=== PATIENT | female | born 1985 | race Caucasian/White ===

== ENCOUNTER 2018-03-02 12:14 | Outpatient (CLI) | payer MEDICAID ==
[~2018-03-02] VITALS: Ht 154.9 cm; Wt 62.7 kg
[~2018-03-02 12:14] MED LIST: BACL20TA PO; TRAM50TA2 PO
[2018-03-02 12:59] VITALS: BP 115/77
[2018-03-02 13:19] LABS: AMPHETAMINE SCREEN, URINE Negative (Negative); BARBITURATE SCREEN, URINE Negative (Negative); BENZODIAZEPINE SCREEN, URINE Negative (Negative); CANNABINOID SCREEN, URINE Negative (Negative); COCAINE SCREEN, URINE Negative (Negative); METHADONE SCREEN, URINE Negative (Negative); OPIATE SCREEN, URINE Negative (Negative)
[2018-03-02] MEDS ORDERED: PREN-3 PO (13:29)
[2018-03-02] MEDS ORDERED: HALO5TAB5 PO (13:31)
[2018-03-02] MEDS ORDERED: DIPH25CA61 PO (13:32)
== END 2018-03-02 13:45 | disposition home or self-care (01) ==
LOC: LDOP 12:14
PROVIDERS: ATTEND Student in an Organized Health Care Education/Training Program
DX: O42.913 Preterm premature rupture of membranes, unspecified as to length of time between rupture and onset of labor, third trimester (principal); Z3A.35 35 weeks gestation of pregnancy
CPT/HCPCS: 59025; 80307; 84112; 99201; G0463

== ENCOUNTER 2019-02-18 20:35 | Emergency (ER) | payer MEDICAID ==
[~2019-02-18] VITALS: Ht 154.9 cm; Wt 58.2 kg
[~2019-02-18 20:35] MED LIST changes: +ACET325T14 PO; +DIPH25CA61 PO; +DOCU-131 PO; +HALO5TAB5 PO; +IBUP-1222 PO; +OLAN5TAB9 PO; +PREN-3 PO; +adderall; +tramadol
[2019-02-18 20:42] VITALS: BP 117/80
[2019-02-18 21:33] LABS: BASOPHILS # (AUTO) 0.08 x10^3/uL (0-0.1); BASOPHILS % (AUTO) 1 % (0-1); EOSINOPHILS # (AUTO) 0.54 x10^3/uL (0-0.4); EOSINOPHILS % (AUTO) 6 % (1-7); LYMPHOCYTES # (AUTO) 3.69 x10^3/uL (1-3.4); LYMPHOCYTES % (AUTO) 37 % (22-44); MD NO; MEAN CORPUSCULAR HEMOGLOBIN 29.9 pg (27.0-34.8); MEAN CORPUSCULAR HGB CONC 33.2 g/dL (32.4-35.8); MEAN CORPUSCULAR VOLUME 90.2 fL (80-100); MEAN PLATELET VOLUME 7.7 fL (7.4-10.4); MONOCYTES # (AUTO) 0.47 x10^3/uL (0.2-0.8); MONOCYTES % (AUTO) 5 % (2-9); NEUTROPHILS # (AUTO) 5.14 x10^3/uL (1.8-6.8); NEUTROPHILS % (AUTO) 52 % (42-75); PLATELET COUNT 314 x10^3/uL (130-400); RED BLOOD COUNT 4.75 x10^6/uL (3.82-5.3)
[2019-02-18 21:46] LABS: ALBUMIN 3.8 g/dL (3.4-5.0); ANION GAP 7 mmol/L (5-15); CALCIUM 8.3 mg/dL (8.5-10.1); CHLORIDE 111 mmol/L (98-107); CREATININE 0.79 mg/dL (0.55-1.02)
--- NOTE | 2019-02-18 22:39 | NUR ---
ZULY RN: UA WALKED TO LAB BY DARLENE LYONS
--- NOTE | 2019-02-18 22:51 | NUR ---
FROM LOBBY TO ROOM AT THIS TIME
[2019-02-18 23:23] LABS: CLUE CELLS PRESENT (NONE SEEN); WET PREP WBCS FEW (FEW)
[2019-02-18 23:35] LABS: HCG UR SG 1.023 (1.003-1.030); MICROSCOPIC NOT IND
[2019-02-18 23:43] LABS: CULTURE INDICATED? NO
== END 2019-02-19 | disposition home or self-care (01) ==
LOC: ED 23:59
DX: N76.0 Acute vaginitis (principal); Z90.49 Acquired absence of other specified parts of digestive tract
CPT/HCPCS: 36415; 80048; 81003; 81025; 82040; 84703; 85025; 87210; 87491; 87591; 87808; 99283